=== PATIENT | female | born 1995 | race Caucasian/White ===

== ENCOUNTER → 2022-03-23 10:26 | Outpatient (BNVA) | payer MEDICAID, SELFPAY | PROVIDERS: Visit Provider Obstetrics & Gynecology | DX: Z34.90 Encounter for supervision of normal pregnancy, unspecified, unspecified trimester (principal) | CPT/HCPCS: 80307; 81000; 84443; 85025; 86592; 86762; 86803; 86850; 86900; 87086; 87340; 87491; 87591; 87661; 87806 ==

== ENCOUNTER → 2022-03-27 10:45 | Outpatient (BNVA) | payer MEDICAID, SELFPAY | PROVIDERS: Visit Provider Obstetrics & Gynecology | DX: O09.899 Supervision of other high risk pregnancies, unspecified trimester (principal); Z3A.00 Weeks of gestation of pregnancy not specified | CPT/HCPCS: 84156 ==

== ENCOUNTER → 2022-04-15 10:33 | Outpatient (BNVA) | payer MEDICAID, SELFPAY | PROVIDERS: Visit Provider Obstetrics & Gynecology | DX: O09.899 Supervision of other high risk pregnancies, unspecified trimester (principal) | CPT/HCPCS: 81000 ==

== ENCOUNTER → 2022-05-14 09:28 | Outpatient (BNVA) | payer MEDICAID, SELFPAY | PROVIDERS: Visit Provider Obstetrics & Gynecology | DX: O09.899 Supervision of other high risk pregnancies, unspecified trimester (principal); Z3A.00 Weeks of gestation of pregnancy not specified | CPT/HCPCS: 81000 ==

== ENCOUNTER → 2022-05-28 14:46 | Outpatient (BNVA) | payer MEDICAID, SELFPAY | PROVIDERS: Visit Provider Obstetrics & Gynecology | DX: O09.899 Supervision of other high risk pregnancies, unspecified trimester (principal); Z3A.00 Weeks of gestation of pregnancy not specified | CPT/HCPCS: 81000; 82950; 85025 ==

== ENCOUNTER → 2022-06-02 10:10 | Outpatient (BNVA) | payer MEDICAID, SELFPAY | PROVIDERS: Visit Provider Obstetrics & Gynecology | DX: O09.899 Supervision of other high risk pregnancies, unspecified trimester (principal); Z3A.00 Weeks of gestation of pregnancy not specified | CPT/HCPCS: 82728; 83550 ==

== ENCOUNTER → 2022-06-25 16:05 | Outpatient (BNVA) | payer MEDICAID, SELFPAY | PROVIDERS: Visit Provider Obstetrics & Gynecology | DX: O09.899 Supervision of other high risk pregnancies, unspecified trimester (principal); Z3A.00 Weeks of gestation of pregnancy not specified | CPT/HCPCS: 81000 ==

== ENCOUNTER → 2022-07-17 14:17 | Outpatient (BNVA) | payer MEDICAID, SELFPAY | PROVIDERS: Visit Provider Obstetrics & Gynecology | DX: O09.899 Supervision of other high risk pregnancies, unspecified trimester (principal); Z3A.00 Weeks of gestation of pregnancy not specified | CPT/HCPCS: 81000; 85025 ==

== ENCOUNTER → 2022-07-24 12:00 | Outpatient (BNVA) | payer MEDICAID, SELFPAY | PROVIDERS: Visit Provider Obstetrics & Gynecology | DX: O09.899 Supervision of other high risk pregnancies, unspecified trimester (principal); Z3A.00 Weeks of gestation of pregnancy not specified | CPT/HCPCS: 81000; 87081 ==

== ENCOUNTER → 2022-07-31 14:00 | Outpatient (BNVA) | payer MEDICAID, SELFPAY | PROVIDERS: Visit Provider Obstetrics & Gynecology | DX: O09.899 Supervision of other high risk pregnancies, unspecified trimester (principal); Z3A.00 Weeks of gestation of pregnancy not specified | CPT/HCPCS: 81000 ==

== ENCOUNTER 2022-08-14 07:01 | Inpatient (IN) | payer MEDICAID, SELFPAY ==
[2022-08-14] VITALS (52 sets, daily range): BP systolic 102–142; BP diastolic 58–114; PULSE 60–99; RESP 16–18; TEMP 36.4–36.8; O2SAT 96–100; BMI 26.4
[2022-08-14 07:56] LABS: Basophils # 0.1 10^3/uL (0.0-0.1); Basophils % 0.5 %; Eosinophils # 0.2 10^3/uL (0.0-0.8); Eosinophils % 2.2 %; Hematocrit 36.5 % (37.0-47.0); Hemoglobin 12.1 g/dL (11.5-15.3); Lymphocytes # 1.8 10^3/uL (0.8-4.8); Mean Corpuscular HGB Conc 33.2 g/dL (30.0-36.0); Mean Corpuscular Hemoglobin 30.5 pg (28.0-34.0); Mean Corpuscular Volume 91.9 fl (81-99); Monocytes # 0.8 10^3/uL (0.2-0.9); Monocytes % 7.9 %; Neutrophils # 7.66 10^3/uL (1.8-7.7); Neutrophils % 72.1 %; Nucleated Red Blood Cells % 0 %; Platelet Count 304 10^3/cmm (130-400); Red Blood Count 3.97 10^6/uL (4.1-5.3); Red Cell Distribution Width 14.1 % (12.1-15.1); White Blood Count 10.6 10^3/uL (4.0-10.0)
[2022-08-14] MEDS: oxytocin 30 UNIT/500 ML BAG IV (08:20)
[2022-08-14] MEDS: dextrose 5%-lactated ringers 1,000 ML 124 ML IV (08:24)
[2022-08-14] MEDS: lactated ringers 1,000 ML 999 ML IV (12:53)
--- NOTE | 2022-08-14 13:59 | ANES.PREANE2 ---
Pre-Anesthetic Assessment Height/Weight: Height 1.68 m Weight 74.389 kg Pulse Resp BP Pulse Ox O2 Del Method 73 16 115/68 99 08/14/22 13:56 08/14/22 08:14 08/14/22 13:56 08/14/22 13:48 08/14/22 07:43 Preop Diagnosis: IUP Epidural Familial anesthetic complications: None Was Beta Shannon taken within 24 hours: N/A Was Clonidine taken within 24 hours: N/A Social No alcohol and No tobacco Exam alert, oriented x 3, clear to auscultation bilaterally and regular rate & rhythm Airway Mallampati: Class I Dentition: chipped History/ROS No significant complaints Anesthetic Plan ASA status: 2 Anesthesia: Regional (specify below) Other: epidural Risk of > 500 ml blood loss (7ml/kg in children): Yes, adequate IV access and fluids planned Medications/Allergies Home Medications Medication Instructions Recorded Confirmed Last Taken Type aspirin 81 mg tablet,delayed 81 mg PO DAILY 03/23/22 08/14/22 08/13/22 08:00 History release (Adult Low Dose Aspirin) 81 mg mv-mn no.97-folic 180 mcg-dha 25 1 tab PO DAILY 03/23/22 08/14/22 08/13/22 08:00 History mg-herb no.293 25 mg chewable tab tablet (Alive Daily Support ) magnesium 200 mg tablet 200 mg PO DAILY 04/15/22 08/14/22 08/13/22 08:00 History 200 mg ferrous sulfate 325 mg (65 mg 325 mg PO DAILY 06/10/22 08/14/22 08/13/22 08:00 History iron) tablet 325 mg Allergies Allergy/AdvReac Type Severity Reaction Status Date / Time No Known Allergies Allergy Verified 08/14/22 07:56 Current Medications Generic Name Dose Route Start Last Admin Trade Name Freq PRN Reason Stop Dose Admin Oxytocin 30 unit in 500 mls @ 1 mls/hr 08/14/22 07:45 08/14/22 12:30 Pitocin IV 14 milliunit/min .Q24H CATRINA 14 mls/hr Titration Protocol 1 MILLIUNIT/MIN Dextrose/Lactated Ringer's 1,000 mls @ 125 mls/hr 08/14/22 07:45 08/14/22 08:24 Dextrose 5%-Lactated Ringers IV 124 mls/hr .Q8H CATRINA Administration Ropivacaine 200 mg in 100 mls @ 13 mls/hr 08/14/22 12:15 08/14/22 13:56 Naropin Premix EPIDURAL 13 mls/hr .Q7H42M CATRINA Administration Lactated Ringer's 1,000 mls @ 999 mls/hr 08/14/22 12:05 08/14/22 12:53 Lactated Ringers IV 999 mls/hr .Q1H1M PRN Administration See label comments PFSH Anesthesia Medical History No pertinent past medical history Surgical History No pertinent past surgical history Family History Father Hypertension Denies family history of Colon cancer Ovarian cancer Diabetes Heart disease Hypercholesteremia Breast cancer Uterine cancer Thyroid disease Stroke Female Reproductive History : 3 Data Anesthesia 08/14/22 07:30 Short CBC 08/14/22 Range/Units 07:30 WBC 10.6 H (4.0-10.0) 10^3/uL Hgb 12.1 (11.5-15.3) g/dL Hct 36.5 L (37.0-47.0) % MCV 91.9 (81-99) fl Plt Count 304 (130-400) 10^3/cmm Neut % (Auto) 72.1 % Neut # (Auto) 7.66 (1.8-7.7) 10^3/uL Cardiac Studies: No Data to Display Anesthesia Procedures Epidural Time Out Performed: Yes Consents Signed: Procedure Consent Consent: from patient, from other, risks and benefits reviewed and patient agrees to proceed Lumbar Level: L3-L4 Epidural position: sitting Epidural procedure: sterile prep of area, 1% lidocaine to numb the area, 18 g needle, negative for paresthesia passed, neg for paresthesia, test dose given, 1.5% xylocaine 1:200k epi ( 5 cc), 0.2% Ropivacaine bolus ml (5), placed PCEA, no systemic response, sterile dressing applied, L.U.D. no apparent complications and 0.2% Ropiavacaine @ mls/hr (13) Additional Comments: MIKALA at 4 cm, threaded to 10 cm
--- NOTE | 2022-08-14 15:16 | PM.OPHPUD ---
Labor & Delivery H&P Update Date of Procedure: August 14, 2022 Date H&P Performed: 07/31/22 H&P update information: I have reviewed H&P completed within last 30 days, I have examined patient prior to procedure and No changes to prior documentation Changes to previous documentation: The patient is here for induction of labor at 39 weeks Admission Diagnosis: At 39 weeks 0 days Preop diagnosis: IUP
--- NOTE | 2022-08-14 15:18 | PM.DELIVERY ---
Delivery Note: Date of delivery: August 14, 2022 Pre-delivery diagnoses: iup@39 weeks. History of precipitous delivery, history of preeclampsia Post-delivery diagnoses: same Procedure: Delivering Physician: sofia Estimated blood loss (mL): 50 Findings: term male in the BRIAN presentation with a single nuchal cord reduced at the perineum Pre-Delivery Course: The patient was admitted for induction at term. Pitocin was begun. Max dose was 14 mU. AROM was performed with clear fluid. The patient received an epidural for pain management. After the epidural was placed, the patient was feeling pressure. She was checked and found to have a completely dilated cervix and +4 station Delivery: The patient had complete cervical dilation and began to push. The head delivered in the BRIAN position over an intact perineum under epidural anesthesia. The nose and mouth were bulb suctioned. The shoulders and body delivered atraumatically. The baby was placed onto the mother's abdomen. The cord was clamped and cut. Cord blood was obtained. The placenta delivered spontaneously. It was inspected and found to be intact. Inspection of the perineum revealed a small perineal laceration. It was repaired in the usual fashion.. Estimated blood loss 50 mL. Apgars on baby were 8 at 1 minute and 9 at 5 minutes. Weight of baby is 8 pounds 1 ounce. Mother and baby were stable post delivery. History History History 3 Term 1 0 Miscarriages/Ectopic 1 Living Children 1 Coding Level of Care Code Acute [employer] Prep[employer] for Chg Adithya
--- NOTE | 2022-08-14 17:44 | PC.NURSE ---
Patient ambulated to bathroom, voided 600ml. Patient them ambulated to room without difficulty.
[2022-08-14] MEDS: ibuprofen 800 mg tablet PO (21:31)
[2022-08-15] VITALS: BP 121/73; PULSE 79; RESP 18; TEMP 36.6; O2SAT 97
[2022-08-15 03:17] LABS: Hematocrit 34.1 % (37.0-47.0); Hemoglobin 11.2 g/dL (11.5-15.3); Mean Corpuscular HGB Conc 32.8 g/dL (30.0-36.0); Mean Corpuscular Hemoglobin 30.7 pg (28.0-34.0); Mean Corpuscular Volume 93.4 fl (81-99); Mean Platelet Volume 12.1 fL (7.4-10.4); Platelet Count 263 10^3/cmm (130-400); Red Blood Count 3.65 10^6/uL (4.1-5.3); Red Cell Distribution Width 14.2 % (12.1-15.1)
[2022-08-15 03:30] VITALS: BP 119/78; PULSE 77; RESP 18; TEMP 36.7; O2SAT 97
--- NOTE | 2022-08-15 08:00 | ANE.PACU2 ---
Inpatient post-anesthesia follow up: Airway intact: Yes Vital signs: Temperature 98.0 F Pulse Rate 79 Respiratory Rate 18 Blood Pressure 146/91 Pulse Oximetry 98 Oxygen Delivery Me thod Room Air Oxygen Flow Rate Fraction of Inspir ed Oxygen Hydration adequate: Yes Nausea and vomiting: No Pain level: 1 Mental status: Baseline
[2022-08-15] MEDS: ibuprofen 800 mg tablet PO ×2 (08:48→15:47)
[2022-08-15] MEDS: aspirin 81 mg EC Tablet PO (08:48)
[2022-08-15] MEDS: prenatal vitamin Capsule 1 CAP PO (08:48)
[2022-08-15] MEDS: docusate sodium 100 mg Capsule PO (08:49)
[2022-08-15] MEDS: magnesium oxide 400 mg tablet 200 MG PO (08:49)
[2022-08-15 09:00] VITALS: BP 132/77; PULSE 78; TEMP 36.7; O2SAT 98
--- NOTE | 2022-08-15 14:23 | P.DS_ITS ---
Discharge Providers Date of Admission: 08/14/22 07:01 Date of Discharge: August 15, 2022 Attending Provider at Admission: Jessica Pride MD Attending Provider at Discharge: Jessica Pride MD Reason for Visit Reason for Visit: Induction of labor Hospital Course Hospital Course The patient was admitted for induction of labor at term. She had spontaneous delivery of a term male . She did well and requested discharge on day #1 Physical Exam Narrative: The patient is doing well. No concerns. Const: COMMON NORMALS: no acute distress, average body habitus, patient oriented x3, no limitations, healthy appearing, alert and well nourished GENERAL APPEARANCE: cooperative, comfortable, well kempt and well developed ORIENTATION/CONSCIOUSNESS: Yes awake, Yes oriented to person, Yes oriented to place and Yes oriented to time Resp: COMMON NORMALS: normal respiratory effort EFFORT & INSPECTION: Yes able to speak in complete sentences GI: COMMON NORMALS: Soft to palpation and non-tender PALPATION: Yes Soft to palpation Extremity: COMMON NORMALS: no calf tenderness Neuro: COMMON NORMALS: patient oriented x3 SENSORIUM/ORIENTATION: Yes alert, Yes oriented to person, Yes oriented to place and Yes oriented to time Psych: COMMON NORMALS: mental status grossly normal, Normal thought process present, cooperative, normal affect and speech normal APPEARANCE: Yes well kempt SPEECH: Yes normal speech THOUGHT PROCESS: Normal thought process present Discharge Data Studies Completed and Pending Laboratory Results WBC 12.0 10^3/uL (4.0-10.0) H 08/15/22 02:50 RBC 3.65 10^6/uL (4.1-5.3) L 08/15/22 02:50 Hgb 11.2 g/dL (11.5-15.3) L 08/15/22 02:50 Hct 34.1 % (37.0-47.0) L 08/15/22 02:50 MCV 93.4 fl (81-99) 08/15/22 02:50 MCH 30.7 pg (28.0-34.0) 08/15/22 02:50 MCHC 32.8 g/dL (30.0-36.0) 08/15/22 02:50 RDW 14.2 % (12.1-15.1) 08/15/22 02:50 Plt Count 263 10^3/cmm (130-400) 08/15/22 02:50 MPV 12.1 fL (7.4-10.4) H 08/15/22 02:50 Neut % (Auto) 72.1 % 08/14/22 07:30 Lymph % (Auto) 17.0 % 08/14/22 07:30 [place] % (Auto) 7.9 % 08/14/22 07:30 Eos % (Auto) 2.2 % 08/14/22 07:30 Baso % (Auto) 0.5 % 08/14/22 07:30 Neut # (Auto) 7.66 10^3/uL (1.8-7.7) 08/14/22 07:30 Lymph # (Auto) 1.8 10^3/uL (0.8-4.8) 08/14/22 07:30 [place] # (Auto) 0.8 10^3/uL (0.2-0.9) 08/14/22 07:30 Eos # (Auto) 0.2 10^3/uL (0.0-0.8) 08/14/22 07:30 Baso # (Auto) 0.1 10^3/uL (0.0-0.1) 08/14/22 07:30 Nucleated RBC % (auto) 0 % 08/14/22 07:30 Nucleated RBCs # 0.0 /100WBC 08/14/22 07:30 Vitals Last Vital Signs Temp 98.0 F 08/15/22 09:00 Pulse 78 08/15/22 09:00 Resp 18 08/15/22 03:30 BP 132/77 08/15/22 09:00 Pulse Ox 98 08/15/22 09:00 O2 Del Method 08/15/22 09:00 Discharge Plan Discharge Patient Disposition: Home Condition: Stable Prescriptions: Continued Alive Daily Support 180 mcg-25 mg- 25 mg tablet,chewable 1 tab PO DAILY aspirin [Adult Low Dose Aspirin] 81 mg tablet,delayed release (DR/EC) 81 mg PO DAILY magnesium 200 mg tablet 200 mg PO DAILY ferrous sulfate 325 mg (65 mg iron) tablet 325 mg PO DAILY Discharge Orders: Discharge Order (Routine); Ordered 08/15/22 Ordered By: Jessica Pride Referrals: Jessica Pride MD [Physician] - (Please call [facility] to make an appointment with Dr. Pride in 2 weeks and 6 weeks.) Patient Instructions: Depression (GEN), Perineal Care (GEN), Bleeding (GEN), Preeclampsia and Eclampsia After Delivery (GEN), Breast Care for the Non- Mother (GEN), OB Discharge Report, OB Food/Drug Interaction Guide, Opioid Safety, Vaginal Laceration during Childbirth, Abnormal Bleeding Activity Restrictions/Additional Instructions: Pelvic rest for 6 weeks No lifting more than [address] Pride if you have a fever greater than 100.4 F Discharge Attestations Time Spent in Discharge Care*: less than 30 min Quality Metrics Clinical Quality Measures [ No reported AMI, CVA or VTE this stay] Coding Level of Care Code Acute Chg [facility] note
[2022-08-15 15:40] VITALS: BP 146/91; PULSE 79; TEMP 36.7; O2SAT 98
[2022-08-15 16:00] VITALS: PULSE 79; TEMP 36.7; O2SAT 98
== END 2022-08-15 16:20 | disposition home or self-care (01) | DRG 807 ==
LOC: OPOB 07:37 → OBGYN 14:49
PROVIDERS: Admitting Provider Obstetrics & Gynecology; Visit Provider Obstetrics & Gynecology
DX: O69.81X0 Labor and delivery complicated by cord around neck, without compression, not applicable or unspecified (principal); Z37.0 Single live birth; O70.9 Perineal laceration during delivery, unspecified; Z3A.39 39 weeks gestation of pregnancy; Z87.59 Personal history of other complications of pregnancy, childbirth and the puerperium; Z79.82 Long term (current) use of aspirin
CPT/HCPCS: 36415; 59409; 85025; 85027; J2590; J2795; J7120; J7121

== ENCOUNTER → 2023-01-20 10:40 | Outpatient (BNVA) | payer MEDICAID, SELFPAY | PROVIDERS: Visit Provider Obstetrics & Gynecology | DX: Z01.419 Encounter for gynecological examination (general) (routine) without abnormal findings (principal) | CPT/HCPCS: 88175 ==

== ENCOUNTER → 2024-11-13 11:05 | Outpatient (BNVA) | payer MEDICAID, SELFPAY | PROVIDERS: Visit Provider Nurse Practitioner Women's Health | DX: N97.0 Female infertility associated with anovulation (principal) | CPT/HCPCS: 84144 ==

== ENCOUNTER → 2024-12-15 10:57 | Outpatient (BNVA) | payer MEDICAID, SELFPAY | PROVIDERS: Visit Provider Nurse Practitioner Women's Health | DX: N97.0 Female infertility associated with anovulation (principal) | CPT/HCPCS: 84144 ==

== ENCOUNTER → 2025-01-18 09:56 | Outpatient (BNVA) | payer MEDICAID, SELFPAY | PROVIDERS: Visit Provider Nurse Practitioner Women's Health | DX: N92.6 Irregular menstruation, unspecified (principal); N97.0 Female infertility associated with anovulation; E28.2 Polycystic ovarian syndrome | CPT/HCPCS: 83520; 84144 ==

== ENCOUNTER → 2025-01-31 12:35 | Outpatient (BNVA) | payer MEDICAID, SELFPAY | PROVIDERS: Visit Provider Nurse Practitioner Women's Health | DX: N97.0 Female infertility associated with anovulation (principal) | CPT/HCPCS: 83520 ==